=== PATIENT | female | born 1990 | race Caucasian/White ===

== ENCOUNTER 2025-03-24 00:25 | Emergency (ER) | payer MEDICAID ==
[2025-03-24] MEDS ORDERED: Dexamethasone 4 MG TAB ONE (01:06)
[2025-03-24] MEDS ORDERED: Dexamethasone 10 MG/ML VIAL ONE (01:07)
[2025-03-24] MEDS ORDERED: Ketorolac Tromethamine 30 MG (1 mL) VIAL ONE ×2 (01:07→01:08)
== END 2025-03-24 01:56 | disposition home or self-care (01) ==
LOC: ERS 00:25
DX: K08.89 Other specified disorders of teeth and supporting structures (principal); I48.91 Unspecified atrial fibrillation
CPT/HCPCS: 96372; 99282; J1100; J1885; J8540